=== PATIENT | male | born 1950 | race Caucasian/White ===

== ENCOUNTER 2018-04-01 14:15 | Observation (INO) | payer MEDICARE ==
[~2018-04-01] VITALS: Ht 188 cm; Wt 143.2 kg
[2018-04-01 15:33] LABS: BASOPHILS % (AUTO) 1.3 % (0.0-5.0); EOSINOPHILS % (AUTO) 2.7 % (0.0-8.0); HEMATOCRIT 37.6 % (42-54); LYMPHOCYTES % (AUTO) 27.6 % (21.0-51.0); MEAN CORPUSCULAR HEMOGLOBIN 34.4 pg (27.0-33.0); MEAN CORPUSCULAR HGB CONC 34.6 g/dL (32.0-36.0); MEAN CORPUSCULAR VOLUME 99.3 fL (79-99); MONOCYTES % (AUTO) 11.1 % (3.0-13.0); NEUTROPHILS % (AUTO) 57.3 % (40.0-77.0); NUCLEATED RED BLOOD CELLS 0.1 % (0.0-0.19); PLATELET COUNT (AUTO) 77 K/uL (130-400); RED BLOOD CELL COUNT(AUTO) 3.79 MIL/uL (4.50-6.20); RED CELL DISTRIBUTION WIDTH 14.1 % (11.0-15.5); WHITE BLOOD COUNT (AUTO) 6.3 K/uL (4.8-10.8)
[2018-04-01 15:53] LABS: INR 1.09 (0.85-1.15); PARTIAL THROMBOPLASTIN TIME 28.7 SEC (26.3-35.5); PROTHROMBIN TIME 11.4 SEC (9.6-11.6)
[2018-04-01 15:58] LABS: CREATININE 1.6 mg/dL (0.5-1.5); POTASSIUM 4.5 mmol/L (3.5-5.1)
[2018-04-01 16:01] LABS: ALBUMIN 2.1 g/dL (3.5-5.0); BILIRUBIN,TOTAL 1.2 mg/dL (0.2-1.0); TOTAL PROTEIN, SERUM 6.2 g/dL (6.0-8.3)
[2018-04-01] MEDS ORDERED: ENOXAPARIN SODIUM 100 MG/1 ML SQ ONE (16:55)
[2018-04-01] MEDS: FAMOTIDINE 20MG TAB 20 MG TAB PO SCH (21:00)
[2018-04-01] MEDS ORDERED: ONDANSETRON HCL 4 MG/2 ML VIAL IV PRN (21:00)
[2018-04-01] MEDS ORDERED: MORPHINE SULFATE 4 MG/1ML SYG IV PRN (21:00)
[2018-04-01] MEDS ORDERED: ACETAMINOPHEN 325 MG TAB PO PRN (21:00)
[2018-04-01] MEDS ORDERED: SODIUM CHLORIDE 0.9% 1000ML 2,000 ML IV ONE (21:36)
[2018-04-01] MEDS ORDERED: CLONIDINE HCL 0.1 MG TABLET ONE (21:36)
[2018-04-01] MEDS ORDERED: IOHEXOL 350 MG/ML 100ML INFUS..BTL IV ONE (21:39)
[2018-04-01] MEDS ORDERED: IOHEXOL-350 75 ML VIAL IV ONE (22:15)
[2018-04-02 00:15] VITALS: BP 169/76
[2018-04-02] MEDS ORDERED: GLUCAGON 1MG KIT 1 MG ML IM PRN (01:15)
[2018-04-02] MEDS ORDERED: CLONIDINE HCL 0.1 MG TABLET PO PRN (01:15)
[2018-04-02] MEDS ORDERED: DEXTROSE 50%-WATER 50 ML DISP.SYRIN IV PRN (01:15)
[2018-04-02 04:00] VITALS: BP 150/75
[2018-04-02] MEDS: INSULIN HUMULIN R 100 UNIT/ML 3ML SQ SCH ×4 (06:00→20:57)
[2018-04-02 07:00] VITALS: BP 145/77
[2018-04-02] MEDS ORDERED: INSULIN HUMULIN R 100 UNIT/ML 3ML SQ SCH (07:30)
[2018-04-02] MEDS ORDERED: ENOXAPARIN SODIUM 120 MG/0.8ML SQ SCH (09:00)
[2018-04-02] MEDS: FAMOTIDINE 20MG TAB 20 MG TAB PO SCH ×2 (09:00→21:02)
[2018-04-02] MEDS ORDERED: ASPI-555 PO (09:58)
[2018-04-02] MEDS ORDERED: ATEN50TA PO (09:58)
[2018-04-02] MEDS ORDERED: OMEP40CA37 PO (09:58)
[2018-04-02] MEDS ORDERED: METF-444 PO (09:58)
[2018-04-02] MEDS ORDERED: LOVA20TA3 PO (09:58)
[2018-04-02] MEDS ORDERED: GLIP5POW MC (09:58)
[2018-04-02] MEDS ORDERED: INSLAN SQ (10:00)
[2018-04-02 11:00] VITALS: BP 153/84
[2018-04-02 11:19] LABS: MEAN CORPUSCULAR HEMOGLOBIN 33.2 pg (27.0-33.0); MEAN CORPUSCULAR HGB CONC 33.7 g/dL (32.0-36.0); MEAN CORPUSCULAR VOLUME 98.7 fL (79-99); NUCLEATED RED BLOOD CELLS 0.2 % (0.0-0.19); PLATELET COUNT (AUTO) 56 K/uL (130-400); RED BLOOD CELL COUNT(AUTO) 3.55 MIL/uL (4.50-6.20); RED CELL DISTRIBUTION WIDTH 13.8 % (11.0-15.5); WHITE BLOOD COUNT (AUTO) 4.7 K/uL (4.8-10.8)
[2018-04-02 16:00] VITALS: BP 150/76
[2018-04-02] MEDS: METFORMIN HCL 500 MG TAB.SR.24H PO SCH (18:33)
[2018-04-02 19:00] VITALS: BP 154/84
[2018-04-02] MEDS ORDERED: ASPIRIN 81MG TAB.CHEW PO SCH (21:00)
[2018-04-02] MEDS ORDERED: Lovastatin 20 MG PO SCH (21:00)
[2018-04-02] MEDS ORDERED: INSULIN GLARGINE 100 UNITS/ML 10 ML VIAL SQ SCH (21:00)
[2018-04-02] MEDS: APIXABAN 5 MG TABLET PO SCH (21:03)
[2018-04-03] VITALS: BP 146/68
[2018-04-03 04:00] VITALS: BP 160/83
[2018-04-03 05:29] LABS: HEMATOCRIT 34.2 % (42-54); MEAN CORPUSCULAR HEMOGLOBIN 34.4 pg (27.0-33.0); MEAN CORPUSCULAR HGB CONC 34.9 g/dL (32.0-36.0); MEAN CORPUSCULAR VOLUME 98.5 fL (79-99); PLATELET COUNT (AUTO) 64 K/uL (130-400); RED BLOOD CELL COUNT(AUTO) 3.47 MIL/uL (4.50-6.20); RED CELL DISTRIBUTION WIDTH 14.3 % (11.0-15.5); WHITE BLOOD COUNT (AUTO) 4.6 K/uL (4.8-10.8)
[2018-04-03 05:50] LABS: ALBUMIN 1.8 g/dL (3.5-5.0); BILIRUBIN,TOTAL 1.2 mg/dL (0.2-1.0); CREATININE 1.5 mg/dL (0.5-1.5); POTASSIUM 4.3 mmol/L (3.5-5.1); TOTAL PROTEIN, SERUM 5.4 g/dL (6.0-8.3)
[2018-04-03] MEDS: INSULIN HUMULIN R 100 UNIT/ML 3ML SQ SCH ×2 (06:17→11:30)
[2018-04-03 08:30] VITALS: BP 162/85
[2018-04-03] MEDS ORDERED: ATENOLOL 50 MG TABLET PO SCH (09:00)
[2018-04-03] MEDS ORDERED: GLIPIZIDE 5 MG TABLET PO SCH (09:00)
[2018-04-03] MEDS: APIXABAN 5 MG TABLET PO SCH (09:44)
[2018-04-03] MEDS: METFORMIN HCL 500 MG TAB.SR.24H PO SCH (09:44)
[2018-04-03] MEDS: FAMOTIDINE 20MG TAB 20 MG TAB PO SCH (09:46)
[2018-04-03 12:06] VITALS: BP 150/73
[2018-04-09] MEDS ORDERED: APIXABAN 5 MG TABLET PO SCH (21:00)
== END 2018-04-03 16:00 | disposition home or self-care (01) ==
LOC: EDH 14:15 → EDHIP 18:54 → 3BH 22:29
PROVIDERS: ADMIT Internal Medicine; ATTEND Internal Medicine
DX: I82.411 Acute embolism and thrombosis of right femoral vein (principal); E11.9 Type 2 diabetes mellitus without complications; K70.30 Alcoholic cirrhosis of liver without ascites; I10 Essential (primary) hypertension; E78.5 Hyperlipidemia, unspecified; E66.01 Morbid (severe) obesity due to excess calories; D69.59 Other secondary thrombocytopenia; Z86.718 Personal history of other venous thrombosis and embolism; Z87.442 Personal history of urinary calculi; Z79.4 Long term (current) use of insulin; Z96.653 Presence of artificial knee joint, bilateral; Z88.0 Allergy status to penicillin; Z88.2 Allergy status to sulfonamides
CPT/HCPCS: 36415 ×3; 71275; 80053 ×2; 82948 ×6; 85025; 85027 ×2; 85378; 85610; 85730; 93970; 96372; 99284; A4510; G0378 ×45; J1650; J7030; Q9967

== ENCOUNTER 2018-07-10 18:53 | Emergency (ER) | payer MEDICARE ==
[~2018-07-10 18:53] MED LIST: ASPI-555 PO; ATEN50TA PO; GLIP5POW MC; INSLAN SQ; LOVA20TA3 PO; METF-444 PO; OMEP40CA37 PO
[2018-07-10 19:57] LABS: BASOPHILS % (AUTO) 1.1 % (0.0-5.0); EOSINOPHILS % (AUTO) 3.7 % (0.0-8.0); LYMPHOCYTES % (AUTO) 26.9 % (21.0-51.0); MEAN CORPUSCULAR HEMOGLOBIN 34.5 pg (27.0-33.0); MEAN CORPUSCULAR VOLUME 101.3 fL (79-99); MONOCYTES % (AUTO) 11.1 % (3.0-13.0); NEUTROPHILS % (AUTO) 57.2 % (40.0-77.0); NUCLEATED RED BLOOD CELLS 0.1 % (0.0-0.19); PLATELET COUNT (AUTO) 80 K/uL (130-400); RED BLOOD CELL COUNT(AUTO) 3.55 MIL/uL (4.50-6.20); RED CELL DISTRIBUTION WIDTH 14.1 % (11.0-15.5); WHITE BLOOD COUNT (AUTO) 6.3 K/uL (4.8-10.8)
[2018-07-10 20:11] LABS: INR 1.13 (0.85-1.15); PARTIAL THROMBOPLASTIN TIME 31.3 SEC (26.3-35.5); PROTHROMBIN TIME 11.8 SEC (9.6-11.6)
[2018-07-10 20:18] LABS: CREATININE 1.8 mg/dL (0.5-1.5); POTASSIUM 4.6 mmol/L (3.5-5.1)
[2018-07-10 20:24] LABS: ALBUMIN 2.1 g/dL (3.5-5.0); BILIRUBIN,TOTAL 1.1 mg/dL (0.2-1.0); TOTAL PROTEIN, SERUM 6.1 g/dL (6.0-8.3)
[2018-07-10 20:53] LABS: B-TYPE NATRIURETIC PEPTIDE 408 pg/mL (0-100)
[2018-07-10] MEDS ORDERED: FUROSEMIDE 10 MG/ML 4ML VIAL ONE (22:23)
== END 2018-07-10 22:37 | disposition home or self-care (01) ==
LOC: EDH 18:53
DX: I89.0 Lymphedema, not elsewhere classified (principal); R60.0 Localized edema; I12.9 Hypertensive chronic kidney disease with stage 1 through stage 4 chronic kidney disease, or unspecified chronic kidney disease; E11.22 Type 2 diabetes mellitus with diabetic chronic kidney disease; N18.9 Chronic kidney disease, unspecified; E78.00 Pure hypercholesterolemia, unspecified; Z87.891 Personal history of nicotine dependence; Z88.0 Allergy status to penicillin; Z88.2 Allergy status to sulfonamides; Z86.718 Personal history of other venous thrombosis and embolism; Z98.890 Other specified postprocedural states
CPT/HCPCS: 36415; 71045; 80053; 82550; 83880; 84484; 85025; 85610; 85730; 93005; 93970; 96374; 99284; J1940